=== PATIENT | female | born 1960 | race American Indian/Alaskan Native ===

== ENCOUNTER 2016-08-02 10:32 | Outpatient (CLI) | payer OTHER ==
--- NOTE | 2016-08-03 09:05 | Mammography Report ---
BILATERAL DIGITAL SCREENING MAMMOGRAM with CAD : 08/02/16 10:32:00 CLINICAL: Routine screening. COMPARISON:10/30/13 and annual mammograms going back to 2007. FINDINGS: The breasts are heterogeneously dense, which may obscure small masses.Bilateral circumscribed masses are not specifically changed compared to prior exams. No new mass, architectural distortion or suspicious calcifications. IMPRESSION: No mammographic evidence of malignancy. BI-RADS CATEGORY: 2 -- Benign RECOMMENDATION: Routine mammographic screening in one year. COMMENT: Patient follow-up letters are generated by our [employer] application.
== END 2016-08-02 10:33 | disposition home or self-care (01) ==
LOC: SPVWC 10:32
PROVIDERS: ATTEND Family Medicine
DX: Z12.31 Encounter for screening mammogram for malignant neoplasm of breast (principal)
CPT/HCPCS: 77067; G0202